=== PATIENT | male | born 1960 | race Caucasian/White ===

== ENCOUNTER 2018-02-23 13:37 | Inpatient (IN) ==
[2018-02-23] MEDS ORDERED: ENOXAPARIN 100 MG/ML SYRINGE SUBCUT STA (14:10)
[2018-02-23] MEDS ORDERED: ASPIRIN 325 MG TABLET PO STA (14:10)
[2018-02-23] MEDS ORDERED: CEFUROXIME INJ 1,500 MG in SYRINGE 1 EACH IV ONE (14:20)
[2018-02-23] MEDS ORDERED: SODIUM CHLORIDE 0.9% 1,000 ML IV SCH (14:30)
[2018-02-23 14:37] LABS: Basophils # 0.2 10*3/uL (0.0-0.2); Basophils % 1.3 % (0.0-0.8); Eosinophils # 0.6 10*3/uL (0.0-0.87); Hematocrit 29.8 VOL% (42.0-52.0); Hemoglobin 10.1 GM/DL (14.0-18.0); Immature Granulocytes % 0.7 %; Immature Granulocytes Absolute 0.08 #; Lymphocytes # 2.2 10*3/uL (1.4-4.0); Lymphocytes % 18.7 % (21.2-54.2); Mean Corpuscular HGB Conc 33.9 GM/DL (32-36); Mean Corpuscular Hemoglobin 32 PG (27-34); Mean Corpuscular Volume 94.6 FL (87-102); Mean Platelet Volume 8.5 FL (9.6-12.0); Monocytes # 0.9 10*3/uL (0.11-0.8); Monocytes % 7.9 % (1.7-12.7); Neutrophils # 7.9 10*3/uL (1.4-7.4); Neutrophils % 66.4 % (38.7-73.9); Platelet Count 456 T/CUMM (130-400); Red Blood Count 3.15 MC/CUMM (3.8-5.5); Red Cell Distribution Width 11.9 % (9.3-17.3); White Blood Count 11.9 T/CUMM (4-12)
[2018-02-23 14:58] LABS: Bilirubin,Total 0.4 MG/DL (0.2-1.0); Calcium 8.3 MG/DL (8.5-10.1); Osmolality,Calculated 279.5 MOS/KG (273-304); Potassium 3.9 MMOL/L (3.5-5.1); Total Protein 6.4 G/DL (6.4-8.3)
[2018-02-23] MEDS ORDERED: ASPIRIN 325 MG TABLET ONE (15:12)
[2018-02-23] MEDS ORDERED: ENOXAPARIN 80 MG/0.8 ML SYRINGE SUBCUT ONE (15:12)
[2018-02-23] MEDS: CHLORHEXIDINE 4% SOLN 118 ML BOTTLE TOP SCH ×2 (16:40→22:47)
[2018-02-23] MEDS: CHLORHEXIDINE 0.12% ORAL RINSE 60 ML BOTTLE SWISH/SPIT SCH (22:47)
[2018-02-24] MEDS ORDERED: PAPAVERINE 60 MG/2 ML VIAL ONE (04:36)
[2018-02-24] MEDS ORDERED: TISSUE ADHESIVE 1 EACH APPLICATOR TOP ONE (04:36)
[2018-02-24] MEDS ORDERED: VANCOMYCIN 1,000 MG VIAL ONE (04:37)
[2018-02-24] MEDS: CHLORHEXIDINE 4% SOLN 118 ML BOTTLE TOP SCH ×2 (04:50→08:25)
[2018-02-24] MEDS ORDERED: CEFUROXIME INJ 1,500 MG in SYRINGE 1 EACH IV ONE (05:00)
[2018-02-24] MEDS ORDERED: FAMOTIDINE 20 MG TABLET PO ONE (05:30)
[2018-02-24] MEDS ORDERED: DIAZEPAM 5 MG TABLET PO ONE (05:30)
[2018-02-24] MEDS ORDERED: SUFentanil 250 MCG/5 ML AMP ONE (06:19)
[2018-02-24] MEDS ORDERED: MIDAZOLAM 10 MG/2 ML VIAL ONE (06:19)
[2018-02-24] MEDS ORDERED: PHENYLEPHRINE DRIP 20 MG/250 ML PREMIX IV ONE (06:19)
[2018-02-24] MEDS ORDERED: ePHEDrine 50 MG/ML AMP ONE ×2 (06:20→12:43)
[2018-02-24 07:44] LABS: ABG Base Excess -1.9 MMOL/L (-2.5-2.5); ABG HCO3 22.9 MMOL/L (20-26); ABG Oxygen Saturation 99.8 % (95-100); ABG PCO2 41.2 MM HG (35-48); ABG PH 7.362 (7.35-7.45); ABG TCO2 21.5 MMOL/L (23-27); Glucose Heart Surgery 115 MG/DL (74-106); Hematocrit Heart Surgery 28.8 PERCENT (42-52); Hemoglobin Heart Surgery 9.3 G/DL (14.0-18.0); Ionized Calcium Arterial 1.12 MMOL/L (1.21-1.46); PCO2 Patient Temp Arterial 41.2 MMHG; PH Patient Temp Arterial 7.362; Patient Temperature 37 CELCIUS; Sodium Heart/CVR 137 MMOL/L (135-145)
[2018-02-24 07:59] LABS: Apearance,Urine CLEAR (Clear); Bilirubin,Urine Negative (Negative); Blood, Urine Negative (Negative); Glucose,Urine (UA) Negative (Negative); Ketones,Urine Negative (Negative); Nitrite,Urine Negative (Negative); Protein,Urine Negative; RBC,Urine <1 /HPF (0-4); Urine Color Straw (Yellow); Urine Specific Gravity 1.005 (1.001-1.035); Urine Urobilinogen < 2.0 EU/DL (0.2-1.0); WBC,Urine <1 /HPF (0-6)
[2018-02-24] MEDS: CHLORHEXIDINE 0.12% ORAL RINSE 60 ML BOTTLE SWISH/SPIT SCH ×2 (08:25→20:28)
[2018-02-24 08:57] LABS: Hematocrit Heart Surgery 20.3 PERCENT (42-52); Hemoglobin Heart Surgery 6.5 G/DL (14.0-18.0); PCO2 Patient Temp Venous 38.9 MM HG; PH Patient Temp Venous 7.391; Potassium Heart/CVR 4.5 MMOL/L (3.5-5.1); VBG Base Excess -0.9 MEQ/L (0-4); VBG HCO3 23.5 MEQ/L (24-28); VBG Oxygen Saturation 77.4 %; VBG PH 7.348; VBG PO2 46.7 MMHG (17-40)
[2018-02-24] MEDS ORDERED: CALCIUM CHLORIDE 1,000 MG/10 ML SYRINGE IV ONE (09:15)
[2018-02-24] MEDS ORDERED: SODIUM BICARBONATE 50 MEQ/50 ML SYRINGE IV ONE ×2 (09:15→11:21)
[2018-02-24] MEDS ORDERED: EPINEPHrine 1 MG/10 ML SYRINGE ONE (09:15)
[2018-02-24] MEDS ORDERED: ALBUMIN 5% 12.5 GM/250 ML VIAL IV ONE ×3 (09:15→12:43)
[2018-02-24] MEDS ORDERED: POTASSIUM CHLORIDE RIDER 0 ML IV ONE (09:16)
[2018-02-24] MEDS ORDERED: ATROPINE 1 MG/10 ML SYRINGE ONE (09:16)
[2018-02-24 09:24] LABS: Hemoglobin Heart Surgery 8.3 G/DL (14.0-18.0); PCO2 Patient Temp Venous 34.8 MM HG; PH Patient Temp Venous 7.448; PO2 Patient Temp Venous 44.7 MM HG; Potassium Heart/CVR 4.6 MMOL/L (3.5-5.1); VBG Base Excess -0.4 MEQ/L (0-4); VBG HCO3 24.3 MEQ/L (24-28); VBG Oxygen Saturation 83.6 %; VBG PCO2 39.7 MMHG (41-51); VBG PH 7.404; VBG PO2 55.1 MMHG (17-40)
[2018-02-24 09:54] LABS: Hematocrit Heart Surgery 23.8 PERCENT (42-52); Hemoglobin Heart Surgery 7.6 G/DL (14.0-18.0); PCO2 Patient Temp Venous 35.1 MM HG; PH Patient Temp Venous 7.422; PO2 Patient Temp Venous 38.9 MM HG; Potassium Heart/CVR 4.9 MMOL/L (3.5-5.1); VBG Base Excess -1.1 MEQ/L (0-4); VBG HCO3 23.3 MEQ/L (24-28); VBG Oxygen Saturation 80.2 %; VBG PCO2 40.6 MMHG (41-51); VBG PH 7.379; VBG PO2 47.8 MMHG (17-40)
[2018-02-24 10:29] LABS: Hematocrit Heart Surgery 26.1 PERCENT (42-52); Hemoglobin Heart Surgery 8.4 G/DL (14.0-18.0); Potassium Heart/CVR 5.5 MMOL/L (3.5-5.1); VBG Base Excess -0.6 MEQ/L (0-4); VBG HCO3 23.6 MEQ/L (24-28); VBG Oxygen Saturation 77.8 %; VBG PH 7.405; VBG PO2 44.5 MMHG (17-40)
[2018-02-24 10:32] LABS: PH Patient Temp Venous 7.434
[2018-02-24 10:33] LABS: PCO2 Patient Temp Venous 34.5 MM HG; PO2 Patient Temp Venous 38.8 MM HG
[2018-02-24 10:53] LABS: Hematocrit Heart Surgery 25.5 PERCENT (42-52); Hemoglobin Heart Surgery 8.2 G/DL (14.0-18.0); PCO2 Patient Temp Venous 44.9 MM HG; PH Patient Temp Venous 7.334; Potassium Heart/CVR 5.9 MMOL/L (3.5-5.1); VBG Base Excess -1.9 MEQ/L (0-4); VBG HCO3 22.3 MEQ/L (24-28); VBG PCO2 44.9 MMHG (41-51); VBG PH 7.334
[2018-02-24] MEDS ORDERED: ALBUTEROL INHALER 8 GM INH ONE (10:55)
[2018-02-24 11:18] LABS: ABG Base Excess -1.3 MMOL/L (-2.5-2.5); ABG HCO3 23.3 MMOL/L (20-26); ABG PCO2 46.4 MM HG (35-48); ABG PH 7.333 (7.35-7.45); ABG TCO2 23.1 MMOL/L (23-27); Glucose Heart Surgery 233 MG/DL (74-106); Hematocrit Heart Surgery 25.2 PERCENT (42-52); Hemoglobin Heart Surgery 8.1 G/DL (14.0-18.0); Ionized Calcium Arterial 1.21 MMOL/L (1.21-1.46); PCO2 Patient Temp Arterial 46.4 MMHG; PH Patient Temp Arterial 7.333; Patient Temperature 37 CELCIUS; Potassium Heart/CVR 4.4 MMOL/L (3.5-5.1); Sodium Heart/CVR 134 MMOL/L (135-145)
[2018-02-24] MEDS ORDERED: ALBUMIN 25% 25 GM/100 ML VIAL IV ONE (11:21)
[2018-02-24] MEDS ORDERED: MAGNESIUM SULFATE 1 GM/2 ML VIAL ONE (11:21)
[2018-02-24] MEDS ORDERED: DEXTROSE 5% KCL 20 MEQ 40 MEQ/2,000 ML BAG IV ONE (11:21)
[2018-02-24] MEDS ORDERED: PROTAMINE SULFATE 250 MG/25 ML VIAL IV ONE (11:21)
[2018-02-24] MEDS ORDERED: MANNITOL 12.5 GM/50 ML VIAL IV ONE (11:22)
[2018-02-24] MEDS ORDERED: methylPREDNISolone SOD SUC 1,000 MG/8 ML VIAL ONE (11:22)
[2018-02-24] MEDS ORDERED: HEPARIN 10,000 UNIT/10 ML VIAL ONE (11:22)
[2018-02-24] MEDS ORDERED: FUROSEMIDE 20 MG/2 ML VIAL ONE (11:22)
[2018-02-24] MEDS ORDERED: THROMBIN TOPICAL (RECOMBINANT) 5,000 UNIT VIAL TOP ONE (11:27)
[2018-02-24] MEDS ORDERED: PHENYLEPHRINE DRIP 40 MG/250 ML PREMIX IV ONE (12:05)
[2018-02-24] MEDS ORDERED: MORPHINE 2 MG/1 ML SYRINGE IV PRN (12:29)
[2018-02-24] MEDS ORDERED: POTASSIUM CHLORIDE RIDER 20 MEQ in PREMIX 1 EACH IV PRN (12:29)
[2018-02-24] MEDS ORDERED: POTASSIUM CHLORIDE RIDER 10 MEQ in PREMIX 1 EACH IV PRN (12:29)
[2018-02-24] MEDS ORDERED: CHLORHEXIDINE 4% SOLN 118 ML BOTTLE TOP PRN (12:29)
[2018-02-24] MEDS ORDERED: SODIUM CHLORIDE 0.9% 250 ML IV PRN (12:29)
[2018-02-24] MEDS ORDERED: CALCIUM CHLORIDE 1,000 MG/10 ML SYRINGE IV PRN (12:29)
[2018-02-24] MEDS ORDERED: MIDAZOLAM 2 MG/2 ML VIAL IV PRN (12:29)
[2018-02-24] MEDS ORDERED: DEXTROSE 50% 25 GM/50 ML VIAL IV PRN ×2 (12:29)
[2018-02-24] MEDS ORDERED: MAGNESIUM SULF RIDER 2 GM in PREMIX 1 EACH IV PRN (12:29)
[2018-02-24] MEDS ORDERED: ALBUMIN 5% 12.5 GM in PREMIX 1 EACH IV PRN (12:29)
[2018-02-24] MEDS ORDERED: ACETAMINOPHEN 650 MG SUPP RECTAL PRN (12:29)
[2018-02-24] MEDS ORDERED: MAGNESIUM SULF RIDER 4 GM in PREMIX 1 EACH IV PRN (12:29)
[2018-02-24] MEDS ORDERED: INSULIN REGULAR 100 UNIT/ML IV PRN (12:29)
[2018-02-24] MEDS ORDERED: ONDANSETRON 4 MG/2 ML VIAL IV PRN (12:29)
[2018-02-24] MEDS ORDERED: INSULIN REGULAR DRIP 100 ML IV SCH (12:30)
[2018-02-24 12:32] LABS: ABG Base Excess 0.3 MMOL/L (-2.5-2.5); ABG Oxygen Saturation 96.2 % (95-100); ABG PCO2 47.6 MM HG (35-48); ABG PH 7.356 (7.35-7.45); ABG PO2 98.5 MM HG (80-95); ABG TCO2 27.5 MMOL/L (23-27); Glucose Heart Surgery 162 MG/DL (74-106); Hemoglobin Heart Surgery 8.7 G/DL (14.0-18.0); Potassium Heart/CVR 4.1 MMOL/L (3.5-5.1)
[2018-02-24 12:42] LABS: Basophils # 0.1 10*3/uL (0.0-0.2); Basophils % 0.3 % (0.0-0.8); Eosinophils # 0.1 10*3/uL (0.0-0.87); Eosinophils % 0.4 % (0.00-10.9); Hematocrit 23.7 VOL% (42.0-52.0); Immature Granulocytes % 1.4 %; Lymphocytes # 0.7 10*3/uL (1.4-4.0); Lymphocytes % 2.5 % (21.2-54.2); Mean Corpuscular HGB Conc 33.8 GM/DL (32-36); Mean Corpuscular Hemoglobin 32 PG (27-34); Mean Corpuscular Volume 95.6 FL (87-102); Mean Platelet Volume 8.6 FL (9.6-12.0); Monocytes # 0.9 10*3/uL (0.11-0.8); Monocytes % 3.1 % (1.7-12.7); Neutrophils # 26.8 10*3/uL (1.4-7.4); Neutrophils % 92.3 % (38.7-73.9); Red Cell Distribution Width 12.1 % (9.3-17.3); White Blood Count 29.1 T/CUMM (4-12)
[2018-02-24] MEDS ORDERED: CALCIUM CHLORIDE 1,000 MG/10 ML VIAL IV ONE (12:42)
[2018-02-24] MEDS ORDERED: HEPARIN/NACL 0.9% 2 UNITS/ML 500 ML IV ONE (12:42)
[2018-02-24 12:43] LABS: INR 1.2; PT Patient Result 12.6 SECS; Partial Thromboplastin Time 39.1 SECS (0-40); Platelet Count 291 T/CUMM (130-400); Red Blood Count 2.48 MC/CUMM (3.8-5.5)
[2018-02-24] MEDS ORDERED: MIDAZOLAM 2 MG/2 ML VIAL ONE (12:43)
[2018-02-24] MEDS ORDERED: SUFentanil 50 MCG/ML AMP ONE (12:43)
[2018-02-24] MEDS ORDERED: SEVOFLURANE 1 UNIT/15 MINUTE INH ONE (12:43)
[2018-02-24] MEDS ORDERED: MINERAL OIL/PETROLATUM OPH OINT 3.5 GM TUBE ONE (12:43)
[2018-02-24] MEDS ORDERED: SODIUM CHLORIDE 0.9% 2,000 ML IV ONE (12:44)
[2018-02-24] MEDS ORDERED: LACTATED RINGERS 1,000 ML IV ONE (12:44)
[2018-02-24] MEDS ORDERED: VECURONIUM 10 MG VIAL IV ONE (12:44)
[2018-02-24] MEDS ORDERED: TRANEXAMIC ACID 1,000 MG/10 ML VIAL IV ONE (12:44)
[2018-02-24] MEDS ORDERED: SODIUM CHLORIDE 0.9% 200 ML IV ONE (12:44)
[2018-02-24] MEDS ORDERED: SODIUM CHLORIDE 0.9% 250 ML IV ONE (12:44)
[2018-02-24] MEDS ORDERED: ETOMIDATE 40 MG/20 ML VIAL IV ONE (12:44)
[2018-02-24] MEDS: SODIUM CHLORIDE 0.45% 1,000 ML IV SCH ×2 (12:55)
[2018-02-24 13:15] LABS: Calcium 8.1 MG/DL (8.5-10.1); Osmolality,Calculated 280.5 MOS/KG (273-304); Potassium 4.3 MMOL/L (3.5-5.1)
[2018-02-24 13:18] LABS: Lactic Acid 1.5 MMOL/L (0.4-2.0)
[2018-02-24 13:41] LABS: Band Neutrophils 8 % (0-10); Lymphocytes 3 % (20-55); Segmented Neutrophils 89 % (50-85); Total Cells Counted 100
[2018-02-24 13:42] LABS: Hypochromasia 2+; Platelet Estimate Adequate; Polychromasia Slight
[2018-02-24] MEDS: MORPHINE 10 MG/1 ML VIAL IV PRN ×3 (14:11→19:14)
[2018-02-24] MEDS ORDERED: METOPROLOL TARTRATE 5 MG/5 ML VIAL IV ONE ×2 (15:03→15:20)
[2018-02-24 16:25] LABS: ABG Base Excess -1.2 MMOL/L (-2.5-2.5); ABG HCO3 23.4 MMOL/L (20-26); ABG Oxygen Saturation 98.5 % (95-100); ABG PCO2 39.8 MM HG (35-48); ABG PH 7.383 (7.35-7.45); ABG TCO2 22.1 MMOL/L (23-27); Glucose Heart Surgery 150 MG/DL (74-106); Hematocrit Heart Surgery 25.6 PERCENT (42-52); Hemoglobin Heart Surgery 8.2 G/DL (14.0-18.0); Potassium Heart/CVR 4.6 MMOL/L (3.5-5.1)
[2018-02-24 19:30] LABS: ABG Base Excess -2.1 MMOL/L (-2.5-2.5); ABG HCO3 22.6 MMOL/L (20-26); ABG Oxygen Saturation 96.1 % (95-100); ABG PCO2 36.8 MM HG (35-48); ABG PH 7.393 (7.35-7.45); ABG PO2 81.3 MM HG (80-95)
[2018-02-24] MEDS: INSULIN REGULAR 100 UNIT/ML SUBCUT SCH (20:08)
[2018-02-24] MEDS: CEFUROXIME INJ 1,500 MG in SYRINGE 1 EACH IV SCH (20:28)
[2018-02-25] MEDS: MORPHINE 10 MG/1 ML VIAL IV PRN ×2 (00:01→08:13)
[2018-02-25] MEDS: INSULIN REGULAR 100 UNIT/ML SUBCUT SCH ×6 (00:02→21:22)
[2018-02-25] MEDS: SODIUM CHLORIDE 0.45% 1,000 ML IV SCH ×3 (00:52→15:43)
[2018-02-25 02:09] LABS: Basophils % 0.2 % (0.0-0.8); Hematocrit 22.1 VOL% (42.0-52.0); Hemoglobin 7.3 GM/DL (14.0-18.0); Immature Granulocytes % 0.7 %; Immature Granulocytes Absolute 0.14 #; Lymphocytes # 0.8 10*3/uL (1.4-4.0); Lymphocytes % 4.2 % (21.2-54.2); Mean Corpuscular Hemoglobin 32 PG (27-34); Mean Corpuscular Volume 97.8 FL (87-102); Monocytes # 0.5 10*3/uL (0.11-0.8); Monocytes % 2.8 % (1.7-12.7); Neutrophils # 17.8 10*3/uL (1.4-7.4); Neutrophils % 92.1 % (38.7-73.9); Platelet Count 258 T/CUMM (130-400); Red Blood Count 2.26 MC/CUMM (3.8-5.5); Red Cell Distribution Width 12.2 % (9.3-17.3); White Blood Count 19.3 T/CUMM (4-12)
[2018-02-25 02:39] LABS: Band Neutrophils 5 % (0-10); Lymphocytes 2 % (20-55); Segmented Neutrophils 91 % (50-85); Total Cells Counted 100
[2018-02-25 02:42] LABS: Hypochromasia 1+
[2018-02-25 02:43] LABS: Ovalocytes 1+; Platelet Estimate Normal; Polychromasia Few
[2018-02-25 02:53] LABS: Calcium 7.9 MG/DL (8.5-10.1); Osmolality,Calculated 277.8 MOS/KG (273-304); Potassium 4.7 MMOL/L (3.5-5.1)
[2018-02-25] MEDS: CEFUROXIME INJ 1,500 MG in SYRINGE 1 EACH IV SCH ×2 (07:55→21:27)
[2018-02-25] MEDS: ASPIRIN EC 325 MG TABLET PO SCH (09:00)
[2018-02-25] MEDS: FUROSEMIDE 40 MG TABLET PO SCH (09:00)
[2018-02-25] MEDS: CHLORHEXIDINE 0.12% ORAL RINSE 60 ML BOTTLE SWISH/SPIT SCH ×2 (09:05→21:48)
[2018-02-25] MEDS ORDERED: FUROSEMIDE 40 MG/4 ML VIAL IV ONE (10:45)
[2018-02-25] MEDS: METOPROLOL TARTRATE 25 MG TABLET PO SCH ×2 (10:55→21:27)
[2018-02-25] MEDS ORDERED: THIAMINE INJ 100 MG, FOLIC ACID INJ 1 MG, MAGNESIUM SULF INJ 2 GM, MULTIVITAMIN INJ 10 ... IV ONE (14:16)
[2018-02-25] MEDS: MORPHINE 4 MG/1 ML VIAL IV PRN (18:28)
[2018-02-25] MEDS: ATORVASTATIN 40 MG TABLET PO SCH (21:27)
[2018-02-26] MEDS: INSULIN REGULAR 100 UNIT/ML SUBCUT SCH ×6 (00:10→20:13)
[2018-02-26] MEDS: MORPHINE 4 MG/1 ML VIAL IV PRN (04:27)
[2018-02-26] MEDS ORDERED: LORazepam 2 MG/1 ML VIAL IV ONE (05:30)
[2018-02-26 06:35] LABS: Osmolality,Calculated 278.7 MOS/KG (273-304); Potassium 4.9 MMOL/L (3.5-5.1); Risk Ratio 3.42
[2018-02-26 07:17] LABS: Basophils % 0.1 % (0.0-0.8); Immature Granulocytes Absolute 0.28 #; Lymphocytes # 1.8 10*3/uL (1.4-4.0); Lymphocytes % 6.9 % (21.2-54.2); Mean Corpuscular Hemoglobin 32 PG (27-34); Mean Corpuscular Volume 94.8 FL (87-102); Mean Platelet Volume 9.1 FL (9.6-12.0); Monocytes # 1.8 10*3/uL (0.11-0.8); Monocytes % 6.7 % (1.7-12.7); Neutrophils # 22.9 10*3/uL (1.4-7.4); Neutrophils % 85.3 % (38.7-73.9); Platelet Count 267 T/CUMM (130-400); Red Blood Count 2.11 MC/CUMM (3.8-5.5); Red Cell Distribution Width 12.5 % (9.3-17.3); White Blood Count 26.9 T/CUMM (4-12)
[2018-02-26 07:26] LABS: Hemoglobin 6.8 GM/DL (14.0-18.0)
[2018-02-26 08:02] LABS: Band Neutrophils 2 % (0-10); Lymphocytes 5 % (20-55); Platelet Estimate Adequate; Segmented Neutrophils 82 % (50-85); Total Cells Counted 100
[2018-02-26 08:03] LABS: Giant Platelets Few; Hypochromasia 1+; Microcytosis Slight; Ovalocytes Slight
[2018-02-26] MEDS: FUROSEMIDE 40 MG TABLET PO SCH (08:16)
[2018-02-26] MEDS: METOPROLOL TARTRATE 25 MG TABLET PO SCH ×2 (08:16→21:17)
[2018-02-26] MEDS: ASPIRIN EC 325 MG TABLET PO SCH (08:16)
[2018-02-26] MEDS: CHLORHEXIDINE 0.12% ORAL RINSE 60 ML BOTTLE SWISH/SPIT SCH ×2 (08:18→21:17)
[2018-02-26] MEDS ORDERED: chlordiazePOXIDE 10 MG CAPSULE PO SCH (09:00)
[2018-02-26] MEDS ORDERED: FUROSEMIDE 40 MG/4 ML VIAL IV ONE ×2 (09:55→16:30)
[2018-02-26] MEDS ORDERED: SODIUM CHLORIDE 0.9% 1,000 ML IV PRN (09:57)
[2018-02-26 17:57] LABS: Hematocrit 24.5 VOL% (42.0-52.0)
[2018-02-26 18:05] LABS: Hemoglobin 8.2 GM/DL (14.0-18.0)
[2018-02-26] MEDS: ATORVASTATIN 40 MG TABLET PO SCH (21:17)
[2018-02-27] MEDS: INSULIN REGULAR 100 UNIT/ML SUBCUT SCH ×6 (00:08→20:53)
[2018-02-27 05:30] LABS: Basophils # 0.1 10*3/uL (0.0-0.2); Basophils % 0.2 % (0.0-0.8); Eosinophils # 0.1 10*3/uL (0.0-0.87); Eosinophils % 0.3 % (0.00-10.9); Hematocrit 23.7 VOL% (42.0-52.0); Hemoglobin 8.3 GM/DL (14.0-18.0); Immature Granulocytes % 2.1 %; Immature Granulocytes Absolute 0.47 #; Lymphocytes % 18.3 % (21.2-54.2); Mean Corpuscular Hemoglobin 32 PG (27-34); Mean Corpuscular Volume 92.2 FL (87-102); Mean Platelet Volume 9.7 FL (9.6-12.0); Monocytes # 2.3 10*3/uL (0.11-0.8); Monocytes % 10.4 % (1.7-12.7); Neutrophils # 15.1 10*3/uL (1.4-7.4); Neutrophils % 68.7 % (38.7-73.9); Platelet Count 270 T/CUMM (130-400); Red Blood Count 2.57 MC/CUMM (3.8-5.5); Red Cell Distribution Width 13.4 % (9.3-17.3)
[2018-02-27 05:38] LABS: Osmolality,Calculated 275.8 MOS/KG (273-304); Potassium 4.2 MMOL/L (3.5-5.1)
[2018-02-27 06:48] LABS: Band Neutrophils 2 % (0-10); Hypochromasia 1+; Lymphocytes 14 % (20-55); Platelet Estimate Adequate; Segmented Neutrophils 78 % (50-85); Total Cells Counted 100
[2018-02-27] MEDS ORDERED: BISACODYL 5 MG TABLET ONE (08:46)
[2018-02-27] MEDS: BISACODYL 5 MG TABLET PO SCH (08:49)
[2018-02-27] MEDS: METOPROLOL TARTRATE 25 MG TABLET PO SCH ×2 (08:49→21:14)
[2018-02-27] MEDS: DOCUSATE SODIUM 100 MG CAPSULE PO SCH (08:49)
[2018-02-27] MEDS: FUROSEMIDE 40 MG TABLET PO SCH (08:49)
[2018-02-27] MEDS: ASPIRIN EC 325 MG TABLET PO SCH (08:49)
[2018-02-27] MEDS: CHLORHEXIDINE 0.12% ORAL RINSE 60 ML BOTTLE SWISH/SPIT SCH ×2 (08:50→21:15)
[2018-02-27] MEDS ORDERED: MAGNESIUM HYDROXIDE SUSP 30 ML UDCUP PO PRN (12:32)
[2018-02-27] MEDS ORDERED: ACETAMINOPHEN 325 MG TABLET PO PRN (20:52)
[2018-02-27] MEDS: ATORVASTATIN 40 MG TABLET PO SCH (21:14)
[2018-02-28] MEDS: INSULIN REGULAR 100 UNIT/ML SUBCUT SCH ×3 (03:30→08:19)
[2018-02-28 07:51] VITALS: BP 110/66
[2018-02-28] MEDS: ASPIRIN EC 325 MG TABLET PO SCH (08:18)
[2018-02-28] MEDS: FUROSEMIDE 40 MG TABLET PO SCH (08:18)
[2018-02-28] MEDS: METOPROLOL TARTRATE 25 MG TABLET PO SCH (08:18)
[2018-02-28] MEDS: DOCUSATE SODIUM 100 MG CAPSULE PO SCH (08:18)
[2018-02-28] MEDS: BISACODYL 5 MG TABLET PO SCH (08:19)
[2018-02-28] MEDS: CHLORHEXIDINE 0.12% ORAL RINSE 60 ML BOTTLE SWISH/SPIT SCH (08:20)
== END 2018-02-28 10:20 | disposition home health service (06) | DRG 221 ==
LOC: N.ED 13:37 → N.EDINP 14:20 → N.TELES 15:50 → N.CVR 02-24 07:45 → N.TELES 02-25 12:51
PROVIDERS: ADMIT Thoracic Surgery (Cardiothoracic Vascular Surgery); ATTEND Thoracic Surgery (Cardiothoracic Vascular Surgery)

== ENCOUNTER 2018-03-04 20:42 | Observation (INO) ==
[2018-03-04] MEDS ORDERED: SODIUM CHLORIDE 0.9% 100 ML IV ONE (21:11)
[2018-03-04] MEDS ORDERED: DILTIAZEM 100 MG VIAL.ADD IV ONE (21:11)
[2018-03-04] MEDS ORDERED: POTASSIUM CHLORIDE RIDER 10 MEQ in PREMIX 1 EACH IV PRN (21:24)
[2018-03-04] MEDS ORDERED: MAGNESIUM SULF RIDER 4 GM in PREMIX 1 EACH IV PRN (21:24)
[2018-03-04] MEDS ORDERED: ONDANSETRON 4 MG/2 ML VIAL IV PRN (21:24)
[2018-03-04] MEDS ORDERED: MAGNESIUM SULF RIDER 2 GM in PREMIX 1 EACH IV PRN (21:24)
[2018-03-04] MEDS ORDERED: ZALEPLON 5 MG CAPSULE PO PRN (21:24)
[2018-03-04] MEDS ORDERED: ACETAMINOPHEN 325 MG TABLET PO PRN (21:24)
[2018-03-04] MEDS ORDERED: DILTIAZEM INJ 100 MG in SODIUM CHLORIDE 0.9% 100 ML IV SCH (21:30)
[2018-03-05] MEDS ORDERED: MORPHINE 10 MG/1 ML VIAL ONE (03:20)
[2018-03-05] MEDS: MORPHINE 4 MG/1 ML VIAL IV PRN ×2 (03:25→21:38)
[2018-03-05] MEDS: NITROGLYCERIN 2% OINT 1 INCH/GM PACK TOP SCH ×3 (03:30→13:25)
[2018-03-05] MEDS ORDERED: ENOXAPARIN 80 MG/0.8 ML SYRINGE SUBCUT ONE (03:39)
[2018-03-05] MEDS ORDERED: ASPIRIN CHEW 81 MG TABLET PO ONE ×2 (03:41→03:42)
[2018-03-05 07:14] LABS: Blood Urea Nitrogen 20 MG/DL (7-18); Glucose 102 MG/DL (74-106); Osmolality,Calculated 275.8 MOS/KG (273-304); Potassium 5.1 MMOL/L (3.5-5.1); Sodium 137 MMOL/L (136-145)
[2018-03-05] MEDS: DILTIAZEM CD 120 MG CAPSULE PO SCH ×2 (09:58→21:32)
[2018-03-05] MEDS: APIXABAN 5 MG TABLET PO SCH ×2 (09:58→21:31)
[2018-03-05] MEDS: PANTOPRAZOLE 40 MG TABLET PO SCH (09:58)
[2018-03-05] MEDS: FUROSEMIDE 40 MG TABLET PO SCH (09:58)
[2018-03-05] MEDS ORDERED: METOPROLOL SUCCINATE XL 25 MG TABLET PO SCH (16:00)
[2018-03-05] MEDS ORDERED: ATORVASTATIN 40 MG TABLET PO SCH (21:00)
[2018-03-05] MEDS ORDERED: ASPIRIN 325 MG TABLET PO SCH (21:00)
[2018-03-05] MEDS: ASPIRIN EC 81 MG TABLET PO SCH (21:33)
[2018-03-06 04:38] LABS: Basophils # 0.1 10*3/uL (0.0-0.2); Basophils % 0.9 % (0.0-0.8); Eosinophils # 0.4 10*3/uL (0.0-0.87); Eosinophils % 3.1 % (0.00-10.9); Hematocrit 24.9 VOL% (42.0-52.0); Hemoglobin 8.1 GM/DL (14.0-18.0); Immature Granulocytes % 1.7 %; Immature Granulocytes Absolute 0.25 #; Lymphocytes # 2.8 10*3/uL (1.4-4.0); Lymphocytes % 19.2 % (21.2-54.2); Mean Corpuscular HGB Conc 32.5 GM/DL (32-36); Mean Corpuscular Hemoglobin 31 PG (27-34); Mean Corpuscular Volume 95.4 FL (87-102); Mean Platelet Volume 8.8 FL (9.6-12.0); Monocytes # 1.5 10*3/uL (0.11-0.8); Monocytes % 10.4 % (1.7-12.7); Neutrophils # 9.3 10*3/uL (1.4-7.4); Neutrophils % 64.7 % (38.7-73.9); Platelet Count 354 T/CUMM (130-400); Red Blood Count 2.61 MC/CUMM (3.8-5.5); Red Cell Distribution Width 13.1 % (9.3-17.3); White Blood Count 14.4 T/CUMM (4-12)
[2018-03-06 05:15] LABS: Calcium 8.1 MG/DL (8.5-10.1); Osmolality,Calculated 275.7 MOS/KG (273-304); Potassium 4.6 MMOL/L (3.5-5.1)
[2018-03-06 08:31] VITALS: BP 102/64
[2018-03-06] MEDS ORDERED: METOPROLOL SUCCINATE XL 25 MG TABLET PO SCH (09:00)
[2018-03-06] MEDS: DILTIAZEM CD 120 MG CAPSULE PO SCH (10:01)
[2018-03-06] MEDS: FUROSEMIDE 40 MG TABLET PO SCH (10:02)
[2018-03-06] MEDS: ASPIRIN EC 81 MG TABLET PO SCH (10:04)
[2018-03-06] MEDS: APIXABAN 5 MG TABLET PO SCH (10:05)
[2018-03-06] MEDS: PANTOPRAZOLE 40 MG TABLET PO SCH (10:05)
== END 2018-03-06 11:40 | disposition home or self-care (01) ==
LOC: EDUNIT# → N.ED 20:42 → INTOOBSV 21:24 → N.EDINP 21:24 → N.TELES 21:51
PROVIDERS: ADMIT Internal Medicine Cardiovascular Disease; ATTEND Internal Medicine Cardiovascular Disease

== ENCOUNTER 2020-05-03 14:28 | Inpatient (IN) ==
[2020-05-03] MEDS ORDERED: LABETALOL 20 MG/4 ML SYRINGE IV STA (15:32)
[2020-05-03 15:40] LABS: Basophils # 0.2 10*3/uL (0.0-0.2); Basophils % 1.5 % (0.0-0.8); Eosinophils # 0.5 10*3/uL (0.0-0.87); Eosinophils % 4.7 % (0.00-10.9); Hematocrit 42.8 VOL% (42.0-52.0); Hemoglobin 14.3 GM/DL (14.0-18.0); Immature Granulocytes % 0.4 %; Immature Granulocytes Absolute 0.05 #; Lymphocytes # 2.4 10*3/uL (1.4-4.0); Lymphocytes % 20.9 % (21.2-54.2); Mean Corpuscular HGB Conc 33.4 GM/DL (32-36); Mean Platelet Volume 9.3 FL (9.6-12.0); Monocytes % 7.6 % (1.7-12.7); Neutrophils % 64.9 % (38.7-73.9); Platelet Count 265 T/CUMM (130-400); Red Cell Distribution Width 12.1 % (9.3-17.3); White Blood Count 11.5 T/CUMM (4-12)
[2020-05-03 15:54] LABS: Alanine Aminotransferase 24 U/L (16-61); Albumin 3.6 G/DL (3.4-5.0); Alkaline Phosphatase 118 U/L (45-117); Aspartate Amino Transferase 19 U/L (0-37); Bilirubin,Total < 0.39 MG/DL (0.2-1.0); Blood Urea Nitrogen 17 MG/DL (7-18); Calcium 8.7 MG/DL (8.5-10.1); Estimated Glom Filtration Rate 85 ML/MIN; Glucose 90 MG/DL (74-106); Osmolality,Calculated 265.5 MOS/KG (273-304); Total Protein 7.2 G/DL (6.4-8.3)
[2020-05-03] MEDS ORDERED: amLODIPine 10 MG TABLET ONE (16:36)
[2020-05-03] MEDS ORDERED: amLODIPine 5 MG TABLET PO STA (16:51)
[2020-05-03] MEDS ORDERED: METOPROLOL TARTRATE 5 MG/5 ML VIAL IV ONE (17:00)
[2020-05-03] MEDS ORDERED: LABETALOL 20 MG/4 ML SYRINGE IV PRN (17:39)
[2020-05-03] MEDS: ASPIRIN 325 MG TABLET PO SCH (18:23)
[2020-05-03] MEDS ORDERED: ATORVASTATIN 80 MG TABLET PO SCH (21:00)
[2020-05-03] MEDS ORDERED: ENOXAPARIN 40 MG/0.4 ML SYRINGE SUBCUT SCH (21:00)
[2020-05-03] MEDS ORDERED: PNEUMOCOCCAL VACCINE (23 VALENT) 0.5 ML VIAL IM ONE (22:03)
[2020-05-04 07:05] LABS: Basophils # 0.2 10*3/uL (0.0-0.2); Basophils % 1.4 % (0.0-0.8); Eosinophils % 8.6 % (0.00-10.9); Hemoglobin 14.6 GM/DL (14.0-18.0); Immature Granulocytes % 0.5 %; Immature Granulocytes Absolute 0.05 #; Lymphocytes # 2.5 10*3/uL (1.4-4.0); Lymphocytes % 22.5 % (21.2-54.2); Mean Corpuscular HGB Conc 32.4 GM/DL (32-36); Mean Corpuscular Volume 95.7 FL (87-102); Mean Platelet Volume 9.5 FL (9.6-12.0); Monocytes % 8.6 % (1.7-12.7); Neutrophils % 58.4 % (38.7-73.9); Platelet Count 267 T/CUMM (130-400); Red Cell Distribution Width 12.3 % (9.3-17.3)
[2020-05-04 07:26] LABS: Calcium 8.4 MG/DL (8.5-10.1); Osmolality,Calculated 272.8 MOS/KG (273-304); Risk Ratio 4.76
[2020-05-04] MEDS: ASPIRIN 325 MG TABLET PO SCH (09:21)
[2020-05-04] MEDS ORDERED: ALPRAZolam 0.25 MG TABLET PO SCH (10:46)
[2020-05-04] MEDS: SODIUM CHLORIDE 0.9% 1,000 ML IV SCH ×2 (12:17→12:18)
[2020-05-04] MEDS ORDERED: CLOPIDOGREL 75 MG TABLET PO SCH (13:00)
[2020-05-04 16:44] VITALS: BP 170/114
[2020-05-04] MEDS ORDERED: ASPIRIN EC 81 MG TABLET PO SCH (17:42)
[2020-05-04] MEDS ORDERED: METOPROLOL SUCCINATE XL 50 MG TABLET PO ONE (17:46)
[2020-05-04] MEDS ORDERED: amLODIPine 5 MG TABLET PO ONE (17:51)
== END 2020-05-04 19:29 | disposition home or self-care (01) | DRG 861 ==
LOC: N.ED 14:28 → N.EDINP 17:38 → N.TELEN 20:03
PROVIDERS: ADMIT Internal Medicine; ATTEND Internal Medicine

== ENCOUNTER 2022-01-19 10:09 | Inpatient (IN) ==
[2022-01-19] MEDS ORDERED: ALBUTEROL 2.5 MG/3 ML NEB RESP TX ONE (10:34)
[2022-01-19] MEDS ORDERED: ALBUTEROL 2.5 MG/3 ML NEB RESP TX STA (10:43)
[2022-01-19 10:51] LABS: Basophils # 0.2 10*3/uL (0.0-0.2); Basophils % 1.2 % (0.0-0.8); Eosinophils # 0.6 10*3/uL (0.0-0.87); Eosinophils % 3.7 % (0.00-10.9); Hemoglobin 11.5 GM/DL (14.0-18.0); Immature Granulocytes % 0.6 %; Lymphocytes # 2.2 10*3/uL (1.4-4.0); Lymphocytes % 14.1 % (21.2-54.2); Mean Corpuscular HGB Conc 32.9 GM/DL (32-36); Mean Corpuscular Volume 92.8 FL (87-102); Mean Platelet Volume 9.4 FL (9.6-12.0); Monocytes % 4.8 % (1.7-12.7); Neutrophils % 75.6 % (38.7-73.9); Platelet Count 297 T/CUMM (130-400); Red Blood Count 3.77 MC/CUMM (3.8-5.5); Red Cell Distribution Width 13.7 % (9.3-17.3); White Blood Count 15.6 T/CUMM (4-12)
[2022-01-19 10:56] LABS: ABG Base Excess 4.3 MMOL/L (-2.5-2.5); ABG HCO3 28.8 MMOL/L (20-26); ABG Oxygen Saturation 96.2 % (95-100); ABG PCO2 42.7 MM HG (35-48); ABG PH 7.447 (7.35-7.45); ABG PO2 87.6 MM HG (80-95); ABG TCO2 30.1 MMOL/L (23-27)
[2022-01-19 11:17] LABS: Albumin 3.3 G/DL (3.4-5.0); Bilirubin,Total 1.2 MG/DL (0.20-1.00); Calcium 8.7 MG/DL (8.5-10.1); Potassium 3.5 MMOL/L (3.5-5.1); Total Protein 7.2 G/DL (6.4-8.2)
[2022-01-19] MEDS ORDERED: AZITHROMYCIN INJ 500 MG in SODIUM CHLORIDE 0.9% 250 ML IV STA (11:30)
[2022-01-19] MEDS ORDERED: cefTRIAXone 1,000 MG in SODIUM CHLORIDE 0.9% 100 ML IV STA (11:30)
[2022-01-19] MEDS ORDERED: FUROSEMIDE 40 MG/4 ML VIAL IV STA (12:16)
[2022-01-19] MEDS ORDERED: ASPIRIN 325 MG TABLET PO STA (12:27)
[2022-01-19] MEDS ORDERED: ENOXAPARIN 30 MG/0.3 ML SYRINGE SUBCUT STA (12:27)
[2022-01-19] MEDS ORDERED: ONDANSETRON 4 MG/2 ML VIAL IV PRN (13:00)
[2022-01-19] MEDS ORDERED: GLUCAGON 1 MG VIAL IM PRN (13:00)
[2022-01-19] MEDS ORDERED: guaiFENesin/DM ER 600-30 MG TABLET PO PRN (13:23)
[2022-01-19] MEDS ORDERED: DEXTROSE 10% 250 ML BAG IV PRN (13:27)
[2022-01-19] MEDS: APIXABAN 5 MG TABLET PO SCH (21:31)
[2022-01-19] MEDS: AZITHROMYCIN INJ 500 MG in SODIUM CHLORIDE 0.9% 250 ML IV SCH (22:40)
[2022-01-20 05:05] LABS: Basophils # 0.1 10*3/uL (0.0-0.2); Basophils % 0.9 % (0.0-0.8); Eosinophils # 0.7 10*3/uL (0.0-0.87); Hematocrit 31.8 VOL% (42.0-52.0); Hemoglobin 10.3 GM/DL (14.0-18.0); Immature Granulocytes % 0.7 %; Lymphocytes # 2.3 10*3/uL (1.4-4.0); Mean Corpuscular HGB Conc 32.4 GM/DL (32-36); Mean Corpuscular Volume 94.4 FL (87-102); Mean Platelet Volume 10.3 FL (9.6-12.0); Neutrophils % 71.4 % (38.7-73.9); Platelet Count 291 T/CUMM (130-400); Red Blood Count 3.37 MC/CUMM (3.8-5.5); Red Cell Distribution Width 13.9 % (9.3-17.3); White Blood Count 14.6 T/CUMM (4-12)
[2022-01-20 05:24] LABS: Bilirubin,Total 1.1 MG/DL (0.20-1.00); Calcium 8.5 MG/DL (8.5-10.1); Osmolality,Calculated 279.5 MOS/KG (273-304); Potassium 3.4 MMOL/L (3.5-5.1); Total Protein 6.9 G/DL (6.4-8.2)
[2022-01-20] MEDS: PANTOPRAZOLE 40 MG TABLET PO SCH (09:11)
[2022-01-20] MEDS: FUROSEMIDE 40 MG/4 ML VIAL IV SCH ×2 (09:36→15:54)
[2022-01-20] MEDS ORDERED: POTASSIUM CHLORIDE 20 MEQ TABLET PO ONE (11:08)
[2022-01-20] MEDS: cefTRIAXone 1,000 MG in SODIUM CHLORIDE 0.9% 100 ML IV SCH (11:28)
[2022-01-20] MEDS: METOPROLOL SUCCINATE XL 100 MG TABLET PO SCH (11:29)
[2022-01-20] MEDS: ASPIRIN CHEW 81 MG TABLET PO SCH (11:29)
[2022-01-20] MEDS: lisinopriL 20 MG TABLET PO SCH (11:29)
[2022-01-20] MEDS ORDERED: DILTIAZEM CD 120 MG CAPSULE PO SCH (11:30)
[2022-01-20] MEDS ORDERED: NITROGLYCERIN SL 0.4 MG TABLET SL PRN (12:18)
[2022-01-20] MEDS: AZITHROMYCIN INJ 500 MG in SODIUM CHLORIDE 0.9% 250 ML IV SCH (12:40)
[2022-01-20] MEDS: ATORVASTATIN 80 MG TABLET PO SCH (21:07)
[2022-01-21 05:42] LABS: Basophils # 0.1 10*3/uL (0.0-0.2); Basophils % 0.9 % (0.0-0.8); Eosinophils # 1.1 10*3/uL (0.0-0.87); Eosinophils % 8.2 % (0.00-10.9); Hematocrit 31.7 VOL% (42.0-52.0); Hemoglobin 10.2 GM/DL (14.0-18.0); Immature Granulocytes % 0.5 %; Immature Granulocytes Absolute 0.06 #; Lymphocytes # 2.3 10*3/uL (1.4-4.0); Lymphocytes % 17.6 % (21.2-54.2); Mean Corpuscular HGB Conc 32.2 GM/DL (32-36); Mean Corpuscular Volume 95.2 FL (87-102); Mean Platelet Volume 9.9 FL (9.6-12.0); Monocytes % 7.5 % (1.7-12.7); Neutrophils % 65.3 % (38.7-73.9); Platelet Count 289 T/CUMM (130-400); Red Blood Count 3.33 MC/CUMM (3.8-5.5)
[2022-01-21 06:06] LABS: Risk Ratio 4.19; VLDL Cholesterol 15.4 MG/DL
[2022-01-21 06:14] LABS: Calcium 8.6 MG/DL (8.5-10.1); Potassium 3.9 MMOL/L (3.5-5.1)
[2022-01-21] MEDS: PANTOPRAZOLE 40 MG TABLET PO SCH (09:29)
[2022-01-21] MEDS: ASPIRIN CHEW 81 MG TABLET PO SCH (09:29)
[2022-01-21] MEDS: METOPROLOL SUCCINATE XL 100 MG TABLET PO SCH (09:30)
[2022-01-21] MEDS: lisinopriL 20 MG TABLET PO SCH (09:30)
[2022-01-21] MEDS: APIXABAN 5 MG TABLET PO SCH ×2 (09:32→20:46)
[2022-01-21] MEDS: FUROSEMIDE 40 MG/4 ML VIAL IV SCH ×2 (11:51→16:11)
[2022-01-21] MEDS: cefTRIAXone 1,000 MG in SODIUM CHLORIDE 0.9% 100 ML IV SCH (13:45)
[2022-01-21] MEDS: AZITHROMYCIN INJ 500 MG in SODIUM CHLORIDE 0.9% 250 ML IV SCH (14:35)
[2022-01-21] MEDS: ATORVASTATIN 80 MG TABLET PO SCH (20:46)
[2022-01-21] MEDS: BUDESONIDE/FORMOTEROL 160-4.5 INHALER 6 GM INH SCH (20:46)
[2022-01-22 05:35] LABS: Basophils # 0.1 10*3/uL (0.0-0.2); Basophils % 1.1 % (0.0-0.8); Eosinophils # 1.3 10*3/uL (0.0-0.87); Eosinophils % 10.4 % (0.00-10.9); Hemoglobin 10.5 GM/DL (14.0-18.0); Immature Granulocytes % 0.8 %; Lymphocytes # 2.5 10*3/uL (1.4-4.0); Lymphocytes % 20.6 % (21.2-54.2); Mean Corpuscular HGB Conc 31.8 GM/DL (32-36); Mean Corpuscular Volume 93.8 FL (87-102); Mean Platelet Volume 9.7 FL (9.6-12.0); Monocytes % 6.4 % (1.7-12.7); Neutrophils % 60.7 % (38.7-73.9); Platelet Count 319 T/CUMM (130-400); Red Blood Count 3.52 MC/CUMM (3.8-5.5); White Blood Count 12.3 T/CUMM (4-12)
[2022-01-22 06:51] LABS: Calcium 8.4 MG/DL (8.5-10.1); Osmolality,Calculated 279.5 MOS/KG (273-304); Potassium 3.8 MMOL/L (3.5-5.1)
[2022-01-22] MEDS: ASPIRIN CHEW 81 MG TABLET PO SCH (08:59)
[2022-01-22] MEDS: APIXABAN 5 MG TABLET PO SCH (09:00)
[2022-01-22] MEDS: lisinopriL 20 MG TABLET PO SCH (09:00)
[2022-01-22] MEDS: PANTOPRAZOLE 40 MG TABLET PO SCH (09:01)
[2022-01-22] MEDS: METOPROLOL SUCCINATE XL 100 MG TABLET PO SCH (09:01)
[2022-01-22] MEDS: BUDESONIDE/FORMOTEROL 160-4.5 INHALER 6 GM INH SCH (09:02)
[2022-01-22] MEDS: FUROSEMIDE 40 MG/4 ML VIAL IV SCH (09:07)
[2022-01-22 12:57] VITALS: BP 110/73
[2022-01-22] MEDS: cefTRIAXone 1,000 MG in SODIUM CHLORIDE 0.9% 100 ML IV SCH (13:21)
== END 2022-01-22 13:20 | disposition home health service (06) | DRG 280 ==
LOC: N.ED 10:09 → SUATTDRO 13:00 → N.EDINP 13:00 → N.TELES 20:56
PROVIDERS: ADMIT Internal Medicine; ATTEND Internal Medicine

== ENCOUNTER 2022-02-18 23:54 | Inpatient (IN) ==
[2022-02-19] MEDS ORDERED: ONDANSETRON 4 MG/2 ML VIAL IV STA (00:35)
[2022-02-19] MEDS ORDERED: ENOXAPARIN 100 MG/ML SYRINGE SUBCUT STA (00:35)
[2022-02-19] MEDS ORDERED: ASPIRIN 325 MG TABLET PO STA (00:35)
[2022-02-19] MEDS ORDERED: ALBUTEROL/IPRATROPIUM 3 ML NEB RESP TX STA (00:38)
[2022-02-19] MEDS ORDERED: FUROSEMIDE 40 MG/4 ML VIAL IV STA (00:38)
[2022-02-19] MEDS ORDERED: methylPREDNISolone SOD SUC 125 MG/2 ML VIAL IV STA (00:38)
[2022-02-19] MEDS ORDERED: MORPHINE 4 MG/1 ML VIAL IV STA (00:43)
[2022-02-19 00:57] LABS: Basophils # 0.1 10*3/uL (0.0-0.2); Basophils % 0.6 % (0.0-0.8); Eosinophils # 0.2 10*3/uL (0.0-0.87); Eosinophils % 1.6 % (0.00-10.9); Hematocrit 28.1 VOL% (42.0-52.0); Hemoglobin 8.9 GM/DL (14.0-18.0); Immature Granulocytes % 0.5 %; Immature Granulocytes Absolute 0.06 #; Lymphocytes # 2.2 10*3/uL (1.4-4.0); Lymphocytes % 17.5 % (21.2-54.2); Mean Corpuscular HGB Conc 31.7 GM/DL (32-36); Mean Corpuscular Volume 97.2 FL (87-102); Monocytes % 6.2 % (1.7-12.7); Neutrophils % 73.6 % (38.7-73.9); Platelet Count 352 T/CUMM (130-400); Red Blood Count 2.89 MC/CUMM (3.8-5.5); Red Cell Distribution Width 15.7 % (9.3-17.3); White Blood Count 12.4 T/CUMM (4-12)
[2022-02-19 01:09] LABS: INR 1.3; PT Patient Result 14.2 SECS (10.5-12.0); Partial Thromboplastin Time 30.2 SECS (23.8-32.1)
[2022-02-19 01:11] LABS: Albumin 2.8 G/DL (3.4-5.0); Bilirubin,Total 0.8 MG/DL (0.20-1.00); Calcium 8.2 MG/DL (8.5-10.1); Osmolality,Calculated 282.4 MOS/KG (273-304); Potassium 3.6 MMOL/L (3.5-5.1); Total Protein 6.1 G/DL (6.4-8.2)
[2022-02-19 01:21] LABS: INR 1.3; PT Patient Result 14.2 SECS (10.5-12.0)
[2022-02-19] MEDS ORDERED: POTASSIUM CHLORIDE RIDER 10 MEQ/100 ML PREMIX IV PRN (03:06)
[2022-02-19] MEDS ORDERED: MAGNESIUM SULF RIDER 2 GM/50 ML PREMIX IV PRN (03:06)
[2022-02-19] MEDS ORDERED: ONDANSETRON 4 MG/2 ML VIAL IV PRN (03:06)
[2022-02-19] MEDS ORDERED: ACETAMINOPHEN 325 MG TABLET PO PRN (03:06)
[2022-02-19] MEDS ORDERED: MAGNESIUM SULF RIDER 4 GM/100 ML PREMIX IV PRN (03:06)
[2022-02-19 07:38] LABS: Basophils % 0.2 % (0.0-0.8); Eosinophils % 0.1 % (0.00-10.9); Hemoglobin 8.4 GM/DL (14.0-18.0); Immature Granulocytes % 0.6 %; Immature Granulocytes Absolute 0.07 #; Lymphocytes # 0.7 10*3/uL (1.4-4.0); Lymphocytes % 5.5 % (21.2-54.2); Mean Corpuscular HGB Conc 31.1 GM/DL (32-36); Mean Corpuscular Volume 97.1 FL (87-102); Mean Platelet Volume 9.1 FL (9.6-12.0); Monocytes % 0.9 % (1.7-12.7); Neutrophils % 92.7 % (38.7-73.9); Platelet Count 348 T/CUMM (130-400); Red Blood Count 2.78 MC/CUMM (3.8-5.5); Red Cell Distribution Width 15.4 % (9.3-17.3); White Blood Count 12.3 T/CUMM (4-12)
[2022-02-19 08:04] LABS: Hypochromia 1+; Lymphocytes 6 % (20-55); Microcytosis 1+; Nucleated Red Blood Cells 1 (0-5); Platelet Estimate Adequate; Segmented Neutrophils 94 % (50-85); Total Cells Counted 100
[2022-02-19] MEDS: FUROSEMIDE 40 MG/4 ML VIAL IV SCH ×2 (08:45→17:00)
[2022-02-19] MEDS: ASCORBIC ACID 500 MG TABLET PO SCH (08:56)
[2022-02-19] MEDS: PANTOPRAZOLE 40 MG TABLET PO SCH (08:56)
[2022-02-19] MEDS ORDERED: ASPIRIN CHEW 81 MG TABLET PO SCH (09:00)
[2022-02-19] MEDS ORDERED: lisinopriL 20 MG TABLET PO SCH (09:00)
[2022-02-19] MEDS ORDERED: METOPROLOL SUCCINATE XL 100 MG TABLET PO SCH (09:00)
[2022-02-19 09:04] LABS: Albumin 2.8 G/DL (3.4-5.0); Bilirubin,Total 0.8 MG/DL (0.20-1.00); Calcium 8.5 MG/DL (8.5-10.1); Potassium 4.4 MMOL/L (3.5-5.1); Risk Ratio 3.37; Total Protein 6.3 G/DL (6.4-8.2)
[2022-02-19 10:08] LABS: Hyaline Casts,Urine 7 /LPF (0-3); Mucus,Urine Occasional /LPF (Occasional); RBC,Urine 3 /HPF (0-4); Urine Appearance Clear (Clear); Urine Color Yellow (Yellow); Urine pH 7.5 (4.5-8.0)
[2022-02-19 10:09] LABS: Bilirubin,Urine Negative (Negative); Blood, Urine Negative (Negative); Glucose,Urine (UA) Negative (Negative); Ketones,Urine Negative (Negative); Nitrite,Urine Negative (Negative); Protein,Urine Trace mg/dL (Negative)
[2022-02-19 10:21] LABS: Barbiturates Screen,Urine Negative (Negative); Benzodiazepines Screen,Urine Negative (Negative); Cannabinoid Screen,Urine Positive (Negative); Opiate Screen,Urine Positive (Negative); Phencyclidine Screen,Urine Negative (Negative)
[2022-02-19] MEDS ORDERED: NITROGLYCERIN SL 0.4 MG TABLET SL PRN (10:48)
[2022-02-19] MEDS: ENOXAPARIN 120 MG/0.8 ML SYRINGE SUBCUT SCH (13:34)
[2022-02-19] MEDS: BUDESONIDE/FORMOTEROL 160-4.5 INHALER 6 GM INH SCH ×2 (17:00→20:05)
[2022-02-19] MEDS: BISMUTH SUBSALICYLATE 30 ML/524 MG 240 ML/BOTTLE PO PRN (18:16)
[2022-02-19] MEDS: ATORVASTATIN 80 MG TABLET PO SCH (20:05)
[2022-02-19] MEDS ORDERED: APIXABAN 5 MG TABLET PO SCH (21:00)
[2022-02-20] MEDS: ENOXAPARIN 120 MG/0.8 ML SYRINGE SUBCUT SCH ×2 (00:10→13:12)
[2022-02-20 06:05] LABS: Basophils % 0.1 % (0.0-0.8); Hematocrit 25.9 VOL% (42.0-52.0); Hemoglobin 8.1 GM/DL (14.0-18.0); Immature Granulocytes % 0.8 %; Immature Granulocytes Absolute 0.14 #; Lymphocytes # 1.9 10*3/uL (1.4-4.0); Lymphocytes % 11.7 % (21.2-54.2); Mean Corpuscular HGB Conc 31.3 GM/DL (32-36); Mean Corpuscular Volume 98.5 FL (87-102); Mean Platelet Volume 9.4 FL (9.6-12.0); Monocytes % 5.5 % (1.7-12.7); Neutrophils % 81.9 % (38.7-73.9); Platelet Count 385 T/CUMM (130-400); Red Blood Count 2.63 MC/CUMM (3.8-5.5); Red Cell Distribution Width 15.5 % (9.3-17.3); White Blood Count 16.6 T/CUMM (4-12)
[2022-02-20 06:22] LABS: Osmolality,Calculated 283.8 MOS/KG (273-304); Potassium 3.9 MMOL/L (3.5-5.1)
[2022-02-20] MEDS: cefTRIAXone 1,000 MG in SODIUM CHLORIDE 0.9% 100 ML IV SCH (08:36)
[2022-02-20] MEDS: FUROSEMIDE 40 MG/4 ML VIAL IV SCH (08:36)
[2022-02-20] MEDS: ASPIRIN CHEW 81 MG TABLET PO SCH (08:38)
[2022-02-20] MEDS: ASCORBIC ACID 500 MG TABLET PO SCH (08:39)
[2022-02-20] MEDS: PANTOPRAZOLE 40 MG TABLET PO SCH (08:39)
[2022-02-20] MEDS: BUDESONIDE/FORMOTEROL 160-4.5 INHALER 6 GM INH SCH ×2 (08:40→21:01)
[2022-02-20] MEDS: AZITHROMYCIN INJ 500 MG in SODIUM CHLORIDE 0.9% 250 ML IV SCH (08:55)
[2022-02-20] MEDS ORDERED: FUROSEMIDE 40 MG/4 ML VIAL IV SCH (09:00)
[2022-02-20] MEDS ORDERED: ALBUTEROL/IPRATROPIUM 3 ML NEB RESP TX PRN (10:41)
[2022-02-20] MEDS ORDERED: MIDAZOLAM 2 MG/2 ML VIAL ONE (13:33)
[2022-02-20] MEDS ORDERED: fentaNYL 100 MCG/2 ML VIAL ONE (13:33)
[2022-02-20] MEDS ORDERED: diphenhydrAMINE CAP 25 MG CAPSULE PO ONE (14:00)
[2022-02-20] MEDS ORDERED: DIAZEPAM 5 MG TABLET PO ONE (14:00)
[2022-02-20] MEDS ORDERED: CLOPIDOGREL 300 MG TABLET ONE (14:04)
[2022-02-20] MEDS ORDERED: NOREPINEPHRINE 4 MG/4 ML VIAL IV ONE ×2 (14:12→16:43)
[2022-02-20] MEDS ORDERED: NITROGLYCERIN DRIP 0 MG/0 ML BOTTLE IV ONE (14:15)
[2022-02-20] MEDS ORDERED: HYDROmorphone 1 MG/1 ML SYRINGE ONE (14:30)
[2022-02-20] MEDS ORDERED: HEPARIN/NACL 0.9% 2 UNITS/ML 3,000 UNIT/1,500 ML BAG IV ONE (16:29)
[2022-02-20] MEDS ORDERED: MORPHINE 10 MG/1 ML VIAL ONE (16:45)
[2022-02-20] MEDS ORDERED: EPTIFIBATIDE 20,000 MCG/10 ML VIAL ONE ×2 (16:50→16:54)
[2022-02-20] MEDS ORDERED: EPTIFIBATIDE 75 MG/100 ML BOTTLE IV ONE (17:14)
[2022-02-20] MEDS: EPTIFIBATIDE 75 MG/100 ML BOTTLE IV SCH ×2 (17:16→22:43)
[2022-02-20] MEDS ORDERED: FAMOTIDINE 20 MG/2 ML VIAL IV ONE (17:19)
[2022-02-20] MEDS ORDERED: FUROSEMIDE 40 MG/4 ML VIAL ONE (17:29)
[2022-02-20] MEDS: NOREPINEPHRINE 8 MG in SODIUM CHLORIDE 0.9% 242 ML IV PRN (17:30)
[2022-02-20] MEDS: ATORVASTATIN 80 MG TABLET PO SCH (20:49)
[2022-02-20] MEDS ORDERED: MORPHINE 2 MG/1 ML SYRINGE IV ONE (21:52)
[2022-02-21] MEDS ORDERED: FUROSEMIDE 40 MG/4 ML VIAL ONE (05:02)
[2022-02-21] MEDS ORDERED: FUROSEMIDE 40 MG/4 ML VIAL IV ONE (05:06)
[2022-02-21] MEDS ORDERED: MORPHINE 2 MG/1 ML SYRINGE IV ONE (05:06)
[2022-02-21 05:26] LABS: Arterial Base Excess iSTAT 8 MMOL/L (-2.5-2.5); Arterial Bicarbonate iSTAT 32.1 MMOL/L (20-26); Arterial O2 Saturation iSTAT 94 % (95-100); Arterial PCO2 iSTAT 44 MM HG (35-48); Arterial PO2 iSTAT 65 MM HG (80-95); Arterial Total CO2 iSTAT 33 MMO/L (23-27); Arterial pH iSTAT 7.472 (7.35-7.45)
[2022-02-21 05:48] LABS: Bacteria,Urine Occasional /HPF (Few); RBC,Urine 1 /HPF (0-4); Urine Appearance Clear (Clear); Urine Color Yellow (Yellow)
[2022-02-21 05:49] LABS: Bilirubin,Urine Negative (Negative); Blood, Urine Negative (Negative); Glucose,Urine (UA) Negative (Negative); Ketones,Urine Negative (Negative); Nitrite,Urine Negative (Negative); Protein,Urine Negative (Negative); Urine Specific Gravity 1.015 (1.001-1.035)
[2022-02-21 05:55] LABS: Basophils # 0.1 10*3/uL (0.0-0.2); Basophils % 0.7 % (0.0-0.8); Eosinophils % 0.2 % (0.00-10.9); Immature Granulocytes % 1.5 %; Immature Granulocytes Absolute 0.18 #; Lymphocytes % 16.8 % (21.2-54.2); Mean Corpuscular HGB Conc 29.1 GM/DL (32-36); Mean Corpuscular Volume 102.5 FL (87-102); Mean Platelet Volume 8.9 FL (9.6-12.0); Monocytes % 7.3 % (1.7-12.7); NRBC # 0.03 10*3/uL; Neutrophils % 73.5 % (38.7-73.9); Platelet Count 321 T/CUMM (130-400); Red Blood Count 3.22 MC/CUMM (3.8-5.5); Red Cell Distribution Width 15.8 % (9.3-17.3); White Blood Count 12.1 T/CUMM (4-12)
[2022-02-21 05:56] LABS: Hemoglobin 9.6 GM/DL (14.0-18.0)
[2022-02-21 05:59] LABS: Calcium 8.2 MG/DL (8.5-10.1); Osmolality,Calculated 276.4 MOS/KG (273-304); Potassium 4.3 MMOL/L (3.5-5.1)
[2022-02-21 06:31] LABS: High Sensitive Troponin I* 8512.9 ng/L (0-78)
[2022-02-21] MEDS: cefTRIAXone 1,000 MG in SODIUM CHLORIDE 0.9% 100 ML IV SCH (07:30)
[2022-02-21] MEDS: AZITHROMYCIN INJ 500 MG in SODIUM CHLORIDE 0.9% 250 ML IV SCH (08:26)
[2022-02-21] MEDS ORDERED: FUROSEMIDE 40 MG/4 ML VIAL IV SCH (09:00)
[2022-02-21] MEDS: CLOPIDOGREL 75 MG TABLET PO SCH (09:18)
[2022-02-21] MEDS: ALPRAZolam 0.25 MG TABLET PO PRN ×2 (09:18→19:30)
[2022-02-21] MEDS: ASCORBIC ACID 500 MG TABLET PO SCH (09:18)
[2022-02-21] MEDS: ASPIRIN CHEW 81 MG TABLET PO SCH (09:18)
[2022-02-21] MEDS: PANTOPRAZOLE 40 MG VIAL IV SCH (09:19)
[2022-02-21] MEDS: BUDESONIDE/FORMOTEROL 160-4.5 INHALER 6 GM INH SCH ×2 (09:45→20:20)
[2022-02-21] MEDS ORDERED: hydrOXYzine HCL 25 MG TABLET PO PRN (10:32)
[2022-02-21 11:09] LABS: Arterial Base Excess iSTAT 6 MMOL/L (-2.5-2.5); Arterial Bicarbonate iSTAT 31.5 MMOL/L (20-26); Arterial O2 Saturation iSTAT 36 % (95-100); Arterial PCO2 iSTAT 51 MM HG (35-48); Arterial PO2 iSTAT 22 MM HG (80-95); Arterial Total CO2 iSTAT 33 MMO/L (23-27); Arterial pH iSTAT 7.398 (7.35-7.45)
[2022-02-21 11:20] LABS: Arterial Base Excess iSTAT 6 MMOL/L (-2.5-2.5); Arterial Bicarbonate iSTAT 30.2 MMOL/L (20-26); Arterial O2 Saturation iSTAT 97 % (95-100); Arterial PCO2 iSTAT 39 MM HG (35-48); Arterial PO2 iSTAT 85 MM HG (80-95); Arterial Total CO2 iSTAT 31 MMO/L (23-27); Arterial pH iSTAT 7.492 (7.35-7.45)
[2022-02-21 11:26] LABS: Basophils # 0.1 10*3/uL (0.0-0.2); Basophils % 0.5 % (0.0-0.8); Eosinophils % 0.2 % (0.00-10.9); Hematocrit 24.6 VOL% (42.0-52.0); Hemoglobin 7.7 GM/DL (14.0-18.0); Immature Granulocytes % 1.5 %; Immature Granulocytes Absolute 0.23 #; Lymphocytes % 13.3 % (21.2-54.2); Mean Corpuscular HGB Conc 31.3 GM/DL (32-36); Mean Corpuscular Volume 96.9 FL (87-102); Mean Platelet Volume 8.9 FL (9.6-12.0); Monocytes % 9.3 % (1.7-12.7); NRBC # 0.03 10*3/uL; Neutrophils % 75.2 % (38.7-73.9); Platelet Count 358 T/CUMM (130-400); Red Blood Count 2.54 MC/CUMM (3.8-5.5); Red Cell Distribution Width 15.8 % (9.3-17.3); White Blood Count 15.1 T/CUMM (4-12)
[2022-02-21 11:43] LABS: Calcium 7.8 MG/DL (8.5-10.1); Osmolality,Calculated 281.1 MOS/KG (273-304); Potassium 4.3 MMOL/L (3.5-5.1)
[2022-02-21] MEDS: LEVALBUTEROL 0.63 MG/3 ML NEB RESP TX SCH ×2 (12:05→19:30)
[2022-02-21] MEDS ORDERED: NITROGLYCERIN DRIP 50 MG/250 ML BOTTLE IV PRN (12:55)
[2022-02-21] MEDS: APIXABAN 5 MG TABLET PO SCH (20:20)
[2022-02-21] MEDS: ATORVASTATIN 80 MG TABLET PO SCH (20:20)
[2022-02-21 22:56] LABS: Basophils # 0.1 10*3/uL (0.0-0.2); Basophils % 0.5 % (0.0-0.8); Eosinophils # 0.1 10*3/uL (0.0-0.87); Eosinophils % 0.4 % (0.00-10.9); Hematocrit 24.8 VOL% (42.0-52.0); Hemoglobin 7.7 GM/DL (14.0-18.0); Immature Granulocytes Absolute 0.17 #; Lymphocytes # 2.2 10*3/uL (1.4-4.0); Lymphocytes % 13.3 % (21.2-54.2); Mean Corpuscular Volume 96.1 FL (87-102); Mean Platelet Volume 8.8 FL (9.6-12.0); Monocytes % 8.5 % (1.7-12.7); NRBC # 0.06 10*3/uL; Neutrophils % 76.3 % (38.7-73.9); Platelet Count 370 T/CUMM (130-400); Red Blood Count 2.58 MC/CUMM (3.8-5.5); Red Cell Distribution Width 15.9 % (9.3-17.3); White Blood Count 16.2 T/CUMM (4-12)
[2022-02-21 23:17] LABS: ABG Base Excess 6.2 MMOL/L (-2.5-2.5); ABG HCO3 29.4 MMOL/L (20-26); ABG Oxygen Saturation 50.7 % (95-100); ABG PCO2 50.1 MM HG (35-48); ABG TCO2 29.9 MMOL/L (23-27)
[2022-02-21 23:27] LABS: ABG PO2 35.1 MM HG (80-95)
[2022-02-21 23:36] LABS: Albumin 2.7 G/DL (3.4-5.0); Calcium 7.9 MG/DL (8.5-10.1); Potassium 4.3 MMOL/L (3.5-5.1); Total Protein 5.8 G/DL (6.4-8.2)
[2022-02-21 23:49] LABS: Arterial Base Excess iSTAT 5 MMOL/L (-2.5-2.5); Arterial Bicarbonate iSTAT 28.1 MMOL/L (20-26); Arterial O2 Saturation iSTAT 94 % (95-100); Arterial PCO2 iSTAT 36 MM HG (35-48); Arterial PO2 iSTAT 63 MM HG (80-95); Arterial Total CO2 iSTAT 29 MMO/L (23-27); Arterial pH iSTAT 7.495 (7.35-7.45)
[2022-02-22] MEDS ORDERED: MORPHINE 2 MG/1 ML SYRINGE IV ONE (00:01)
[2022-02-22] MEDS ORDERED: ONDANSETRON 4 MG/2 ML VIAL IV PRN (00:02)
[2022-02-22] MEDS: MORPHINE 2 MG/1 ML SYRINGE IV PRN ×4 (00:14→23:36)
[2022-02-22] MEDS: LEVALBUTEROL 0.63 MG/3 ML NEB RESP TX SCH ×4 (00:55→19:25)
[2022-02-22] MEDS: BISMUTH SUBSALICYLATE 30 ML/524 MG 240 ML/BOTTLE PO PRN (01:56)
[2022-02-22] MEDS: NOREPINEPHRINE 8 MG in SODIUM CHLORIDE 0.9% 242 ML IV PRN ×6 (02:11→23:01)
[2022-02-22] MEDS ORDERED: LACTULOSE 20 GM/30 ML UDCUP PO PRN (04:08)
[2022-02-22 04:29] LABS: Basophils # 0.1 10*3/uL (0.0-0.2); Basophils % 0.3 % (0.0-0.8); Eosinophils % 0.1 % (0.00-10.9); Hematocrit 23.7 VOL% (42.0-52.0); Hemoglobin 7.5 GM/DL (14.0-18.0); Immature Granulocytes % 1.4 %; Immature Granulocytes Absolute 0.28 #; Lymphocytes # 1.2 10*3/uL (1.4-4.0); Lymphocytes % 6.1 % (21.2-54.2); Mean Corpuscular HGB Conc 31.6 GM/DL (32-36); Mean Corpuscular Volume 96.7 FL (87-102); Mean Platelet Volume 8.9 FL (9.6-12.0); Monocytes % 8.6 % (1.7-12.7); NRBC # 0.05 10*3/uL; Neutrophils % 83.5 % (38.7-73.9); Platelet Count 378 T/CUMM (130-400); Red Blood Count 2.45 MC/CUMM (3.8-5.5); Red Cell Distribution Width 15.8 % (9.3-17.3); White Blood Count 19.6 T/CUMM (4-12)
[2022-02-22 05:03] LABS: Albumin 2.5 G/DL (3.4-5.0); Bilirubin,Total 1.4 MG/DL (0.20-1.00); Calcium 8.2 MG/DL (8.5-10.1); Osmolality,Calculated 284.2 MOS/KG (273-304); Potassium 4.6 MMOL/L (3.5-5.1); Total Protein 5.9 G/DL (6.4-8.2)
[2022-02-22] MEDS: ALPRAZolam 0.25 MG TABLET PO PRN (05:26)
[2022-02-22] MEDS: cefTRIAXone 1,000 MG in SODIUM CHLORIDE 0.9% 100 ML IV SCH (08:30)
[2022-02-22] MEDS: AZITHROMYCIN INJ 500 MG in SODIUM CHLORIDE 0.9% 250 ML IV SCH (08:30)
[2022-02-22] MEDS: PANTOPRAZOLE 40 MG VIAL IV SCH (08:52)
[2022-02-22] MEDS: BUDESONIDE/FORMOTEROL 160-4.5 INHALER 6 GM INH SCH ×2 (08:55→21:24)
[2022-02-22] MEDS: CLOPIDOGREL 75 MG TABLET PO SCH (08:55)
[2022-02-22] MEDS: ASCORBIC ACID 500 MG TABLET PO SCH (08:55)
[2022-02-22] MEDS: APIXABAN 5 MG TABLET PO SCH (08:55)
[2022-02-22] MEDS ORDERED: ASPIRIN EC 81 MG TABLET PO SCH (09:00)
[2022-02-22] MEDS ORDERED: FUROSEMIDE 40 MG/4 ML VIAL IV SCH (09:00)
[2022-02-22] MEDS ORDERED: SODIUM CHLORIDE 0.9% 1,000 ML IV PRN (09:36)
[2022-02-22] MEDS: FUROSEMIDE INJ 100 MG in SODIUM CHLORIDE 0.9% 90 ML IV SCH ×4 (09:44→21:23)
[2022-02-22] MEDS: methylPREDNISolone SOD SUC 40 MG/1 ML VIAL IV SCH ×2 (09:50→17:51)
[2022-02-22] MEDS: LACTULOSE 20 GM/30 ML UDCUP PO SCH ×2 (10:13→16:05)
[2022-02-22] MEDS ORDERED: NOREPINEPHRINE 4 MG/4 ML VIAL IV ONE ×2 (13:17→16:37)
[2022-02-22 15:36] VITALS: BP 93/55
[2022-02-22] MEDS: LORazepam 2 MG/1 ML VIAL IV PRN ×3 (16:34→23:55)
[2022-02-22 18:41] LABS: Barbiturates Screen,Urine Negative (Negative); Benzodiazepines Screen,Urine Negative (Negative); Cannabinoid Screen,Urine Negative (Negative); Opiate Screen,Urine Positive (Negative); Phencyclidine Screen,Urine Negative (Negative)
[2022-02-22] MEDS ORDERED: METOPROLOL TARTRATE 25 MG TABLET PO SCH (21:00)
[2022-02-22] MEDS ORDERED: LEVOFLOXACIN INJ 250 MG/50 ML PREMIX IV ONE (22:30)
[2022-02-22] MEDS ORDERED: LEVOFLOXACIN INJ 500 MG/100 ML PREMIX IV ONE (23:00)
[2022-02-23] MEDS: LEVALBUTEROL 0.63 MG/3 ML NEB RESP TX SCH (01:30)
[2022-02-23] MEDS ORDERED: EPINEPHrine 1 MG/10 ML SYRINGE IV ONE (02:00)
[2022-02-23] MEDS ORDERED: SODIUM BICARBONATE 50 MEQ/50 ML SYRINGE IV ONE (02:02)
[2022-02-23] MEDS ORDERED: MAGNESIUM SULFATE 1 GM/2 ML VIAL IV ONE (02:10)
[2022-02-23] MEDS ORDERED: CALCIUM CHLORIDE 1,000 MG/10 ML SYRINGE IV ONE (02:13)
[2022-02-23] MEDS ORDERED: AMIODARONE 150 MG/3 ML VIAL IV ONE (02:14)
[2022-02-23] MEDS ORDERED: EPINEPHrine 1 MG/ML VIAL IV ONE (02:15)
[2022-02-23] MEDS: LACTULOSE 20 GM/30 ML UDCUP PO SCH ×2 (04:08→06:28)
[2022-02-23] MEDS: methylPREDNISolone SOD SUC 40 MG/1 ML VIAL IV SCH (04:14)
[2022-02-23] MEDS ORDERED: ENOXAPARIN 40 MG/0.4 ML SYRINGE SUBCUT SCH (08:00)
[2022-02-23] MEDS ORDERED: LEVOFLOXACIN INJ 250 MG/50 ML PREMIX IV SCH (21:00)
[2022-02-25 10:01] LABS: Arterial Base Excess iSTAT 5 MMOL/L (-2.5-2.5); Arterial PCO2 iSTAT 46 MM HG (35-48); Arterial PO2 iSTAT 123 MM HG (80-95)
[2022-02-25 10:02] LABS: Arterial O2 Saturation iSTAT 99 % (95-100); Arterial Total CO2 iSTAT 32 MMO/L (23-27)
[2022-02-25 10:04] LABS: Arterial Bicarbonate iSTAT 30.5 MMOL/L (20-26)
== END 2022-02-23 02:27 | disposition expired | DRG 246 ==
LOC: N.ED 23:54 → SUATTDRO 02-19 03:06 → N.EDINP 02-19 03:06 → N.TELEN 02-19 13:46 → N.CC 02-20 16:54
PROVIDERS: ADMIT Internal Medicine; ATTEND Internal Medicine